=== PATIENT | male | born 1980 | race Caucasian/White ===

== ENCOUNTER → 2023-04-24 | Outpatient (CLI) | payer BC ==
[2023-04-25 03:57] LABS: ALT 23 U/L (10-49); AST 16 U/L (14-35); Chol/HDL Ratio 2.84 Ratio; Glucose 87 mg/dL (70-110); LDL Cholesterol,Calculated 94.4 mg/dL (0.0-131.0)
== END | disposition home or self-care (01) ==
LOC: LABWHC1 14:43
PROVIDERS: ATTEND Internal Medicine Cardiovascular Disease
DX: I10 Essential (primary) hypertension (principal); E78.2 Mixed hyperlipidemia
CPT/HCPCS: 36415; 80061; 82088; 82533; 82947; 83835; 84244; 84443; 84450; 84460